=== PATIENT | female | born 1945 | race Caucasian/White ===

== ENCOUNTER → 2019-06-20 | Day surgery (SDC) | payer OTHER ==
[~2019-06-20] MED LIST: ACETAMINOPHEN 325 MG TABLET PO PRN; ALBUTEROL SULFATE 2.5 MG/3 ML NEBU. NEB PRN; ATROPINE 0.5 MG/5 ML DISP.SYRIN. IV PRN; CLON-276 PO; ESTR0.5T PO; FURO-69 PO; HYDR-2145 PO; IV RINGERS SOLUTION,LACTATED 1,000 ML IV SCH; LISI-334 PO; MIDAZOLAM HCL PF 2 MG/2 ML VIAL. IV PRN; NAPR-514 PO; ONDANSETRON PF 4 MG/2 ML VIAL. IV PRN; PARO20TA99 PO; PHENOL ORAL SPRAY 177ML BOTTLE. MM PRN; POTA10TA5 PO; PROPOFOL 20 ML IV ONE; PROPOFOL 40 ML IV ONE; SIMV40TA18 PO; diphenhydrAMINE 50 MG/ML VIAL IV PRN
[2019-06-20 08:59] VITALS: BP 100/56
== END ==
LOC: SURG 06:57
PROVIDERS: ATTEND Internal Medicine Gastroenterology
DX: Z12.11 Encounter for screening for malignant neoplasm of colon (principal); K57.30 Diverticulosis of large intestine without perforation or abscess without bleeding; I10 Essential (primary) hypertension; E03.9 Hypothyroidism, unspecified; F32.9 Major depressive disorder, single episode, unspecified; Z90.710 Acquired absence of both cervix and uterus; Z98.890 Other specified postprocedural states; Z88.0 Allergy status to penicillin; Z80.0 Family history of malignant neoplasm of digestive organs
CPT/HCPCS: 45378; J2704

== ENCOUNTER → 2019-09-11 | Outpatient (CLI) | payer MEDICARE ==
[2019-06-20 08:59] VITALS: BP 100/56
[~2019-09-11] MED LIST changes: -ACETAMINOPHEN 325 MG TABLET PO PRN; -ALBUTEROL SULFATE 2.5 MG/3 ML NEBU. NEB PRN; -ATROPINE 0.5 MG/5 ML DISP.SYRIN. IV PRN; -IV RINGERS SOLUTION,LACTATED 1,000 ML IV SCH; -MIDAZOLAM HCL PF 2 MG/2 ML VIAL. IV PRN; -ONDANSETRON PF 4 MG/2 ML VIAL. IV PRN; -PHENOL ORAL SPRAY 177ML BOTTLE. MM PRN; -PROPOFOL 20 ML IV ONE; -PROPOFOL 40 ML IV ONE; -diphenhydrAMINE 50 MG/ML VIAL IV PRN
--- NOTE | 2019-09-11 17:18 | RAD ---
Three-view lumbar spine series Clinical indications: Back pain for one year. No known injury. FINDINGS: The transverse processes are intact. No compression fracture or discitis or lytic process is seen. There is a grade 1 anterolisthesis of L4-5. There is minimal grade 1 anterolisthesis of L5-S1. Degenerative facet arthropathy is seen at these 2 levels. There is degenerative disc space narrowing and endplate spurring from T12-L1 down through L5-S1. FINDINGS: Moderate to severe degenerative lumbar spondylosis. Degenerative spondylolisthesis. No acute compression fracture. Electronically signed by: Martin Choudhury MD (09/11/2019 5:15 PM) [facility] [place]
== END | disposition home or self-care (01) ==
LOC: RAD 11:51
PROVIDERS: ATTEND Family Medicine
DX: M51.37 Other intervertebral disc degeneration, lumbosacral region (principal); M51.35 Other intervertebral disc degeneration, thoracolumbar region; M47.816 Spondylosis without myelopathy or radiculopathy, lumbar region; M43.16 Spondylolisthesis, lumbar region; M48.07 Spinal stenosis, lumbosacral region; M48.05 Spinal stenosis, thoracolumbar region
CPT/HCPCS: 72100

== ENCOUNTER → 2020-06-28 | Outpatient (CLI) | payer MEDICARE ==
[2019-06-20 08:59] VITALS: BP 100/56
--- NOTE | 2020-07-01 13:36 | RAD ---
DATE: 06/28/2020 1:50 PM EXAM: MAMMO JACOBO SCREENING BILATERAL HISTORY: Screening COMPARISON: 05/17/2019 Bilateral CC and MLO views of the breasts were performed. Bilateral breast tomosynthesis was performed in CC and MLO projections. This study was interpreted with the benefit of Computerized Aided Detection (CAD). FINDINGS: Breast Density: FATTY The Breast Parenchyma is primarily fatty replaced. Breast parenchyma level density A. No suspicious masses, microcalcifications or architectural distortion is present to suggest malignancy in either breast. The visualized axillae are unremarkable. IMPRESSION: No mammographic evidence of malignancy. BI-RADS CATEGORY: 1 NEGATIVE RECOMMENDED FOLLOW-UP: 12M 12 MONTH FOLLOW-UP Annual screening mammography is recommended, unless clinically indicated sooner based on symptoms or change in physical exam. PQRS compliance statement: Patient information was entered into a reminder system with a target due date for the next mammogram. Mammography is a sensitive method for finding small breast cancers, but it does not detect them all and is not a substitute for careful clinical examination. A negative mammogram does not negate a clinically suspicious finding and should not result in delay in biopsying a clinically suspicious abnormality. "Our facility is accredited by the [employer] Mammography [employer]."
== END ==
LOC: MAMMO 13:36
PROVIDERS: ATTEND Family Medicine
DX: Z12.31 Encounter for screening mammogram for malignant neoplasm of breast (principal)
CPT/HCPCS: 77063; 77067

== ENCOUNTER → 2021-07-22 | Outpatient (CLI) | payer MEDICARE ==
[2019-06-20 08:59] VITALS: BP 100/56
[~2021-07-22] MED LIST changes: -LISI-334 PO; +LISI20TA18 PO; +POTA-112 PO; -POTA10TA5 PO
--- NOTE | 2021-07-23 10:51 | RAD ---
Digital bilateral screening mammogram with tomos dated 07/22/2021. (INDICATION: 76 years of age asymptomatic female patient presents for screening mammography. Screenin g TECHNIQUE: Full field craniocaudal and mediolateral oblique images of both breasts were obtained usi ng digital technique with tomosynthesis and also analyzed with computer-aided detection software. . COMPARISON: 05/19/2019 06/28/2020. BREAST COMPOSITION: Category B: There are scattered fibroglandular densities. FINDINGS: Small circumscribed nodule in the upper outer aspect of the right breast is unchanged from prior stud ies. No suspicious mass or clustered microcalcification. No architectural distortion. Parenchymal pat tern is stable. IMPRESSION:: Stable bilateral mammogram RECOMMENDATION: Annual screening mammography is recommended, unless clinically indicated sooner based on symptoms or change in physical exam. BIRADS 2: BENIGN This study was interpreted with the benefit of Computerized Aided Detection (CAD). Recommend routine follow-up in one year. Patient information is entered into the reminder system with a target due date for the next screening mammogram. Mammography is the most sensitive method for finding small breast cancers, but it does not detect the m all and is not a substitute for careful clinical examination. A negative mammogram does not negate a clinically suspicious finding and should not result in delay in biopsying a clinically suspicious a bnormality. "Our facility is accredited by the [employer] Mammography [employer]." Electronically signed by: Christoph Stanley MD (07/23/2021 10:49 AM) [id number]
== END ==
LOC: MAMMO 10:44
PROVIDERS: ATTEND Family Medicine
DX: Z12.31 Encounter for screening mammogram for malignant neoplasm of breast (principal); N63.11 Unspecified lump in the right breast, upper outer quadrant
CPT/HCPCS: 77063; 77067